=== PATIENT | female | born 1975 | race Caucasian/White ===

== ENCOUNTER 2016-10-20 01:34 | Inpatient (IN) | payer BC ==
[2016-10-20] VITALS (21 sets, daily range): BP systolic 106–144; BP diastolic 53–77
[~2016-10-20] VITALS: Ht 162.6 cm; Wt 101.0 kg
[~2016-10-20 01:34] MED LIST: SERTRALINE HCL100 MG PO
[2016-10-20 02:28] LABS: EOSINOPHIL (%) 0.4 % (0-5); IMMATURE GRANULOCYTE (%) 0.6 % (0.0-0.7); IMMATURE GRANULOCYTE COUNT 0.6 K/uL; LYMPHOCYTE COUNT 1.8 K/uL (1.0-2.8); MONOCYTE (%) 6.1 % (3-12); MONOCYTE COUNT 0.6 K/uL (0-0.8); NEUTROPHIL (%) 74.7 % (45-76); NEUTROPHIL COUNT 7.5 K/uL (1.8-6.4)
[2016-10-20 02:39] LABS: MCH 28.6 PG (29.0-34.0); MCHC 33.5 G/DL (30.0-36.0); MCV 85.5 FL (83-99); RED BLOOD COUNT 4.33 M/uL (3.80-5.20); WHITE BLOOD COUNT 10.1 K/uL (4.1-10.2)
[2016-10-20 02:59] LABS: ADD MIUA? YES; BILIRUBIN NEGATIVE; BLOOD NEGATIVE; COLOR YELLOW ((YELLOW)); GLUCOSE (STRIP) NEGATIVE; KETONES NEGATIVE; LEUKOCYTES SMALL; NITRITE NEGATIVE; PH, URINE 5.5 (5-8); PROTEIN (STRIP) NEGATIVE; SPECIFIC GRAVITY 1.019 (1.000-1.030); UROBILINOGEN 0.2 MG/DL (0.2-1.0)
[2016-10-20 03:02] LABS: MEAN PLAT.VOLUME 13.2 uM^3 (9.5-12.4); PLAT.SUFFICIENCY ADEQUATE; PLATELET COUNT 155 K/uL (156-360); USER ID WCD
[2016-10-20 03:33] LABS: EPITHELIAL CELLS RARE; MUCUS NONE SEEN; RED BLOOD CELLS NONE SEEN /HPF (0-5)
[2016-10-20 03:34] LABS: AMORPHOUS URATES CRYSTALS 1+; BACTERIA 2+; CASTS NONE SEEN /LPF; CRYSTALS PRESENT; UCUL ADDED? YES
[2016-10-21 02:58] VITALS: BP 109/59
[2016-10-21 07:59] VITALS: BP 101/57
[2016-10-21 08:05] LABS: EOSINOPHIL (%) 0.2 % (0-5); HEMATOCRIT 27.5 % (36.0-46.0); IMMATURE GRANULOCYTE (%) 0.5 % (0.0-0.7); IMMATURE GRANULOCYTE COUNT 0.1 K/uL; LYMPHOCYTE COUNT 1.6 K/uL (1.0-2.8); MCH 28.8 PG (29.0-34.0); MCHC 32.4 G/DL (30.0-36.0); MONOCYTE (%) 8.2 % (3-12); MONOCYTE COUNT 0.8 K/uL (0-0.8); NEUTROPHIL (%) 73.6 % (45-76); NEUTROPHIL COUNT 6.9 K/uL (1.8-6.4); NRBC (%) 0.2 /100 WBC (0-0); RBC DIS.WIDTH-CV 14.5 % (11.8-14.6); RBC DIS.WIDTH-SD 47.2 % (39-53); WHITE BLOOD COUNT 9.4 K/uL (4.1-10.2)
[2016-10-21 08:18] LABS: MEAN PLAT.VOLUME 13.5 uM^3 (9.5-12.4); PLAT.SUFFICIENCY DECREASED; PLATELET COUNT 125 K/uL (156-360); USER ID CCL
[2016-10-21 08:26] LABS: RED BLOOD COUNT 3.09 M/uL (3.80-5.20)
[2016-10-21 11:28] VITALS: BP 131/73
[2016-10-21 15:25] VITALS: BP 112/59
[2016-10-21 19:18] VITALS: BP 101/53
[2016-10-22 03:01] VITALS: BP 109/57
[2016-10-22 07:06] VITALS: BP 124/71
[2016-10-22 14:10] VITALS: BP 117/82
[2016-10-22 23:39] VITALS: BP 104/50
[2016-10-23] MEDS ORDERED: IBUPROFEN800 MG PO (09:51)
[2016-10-23] MEDS ORDERED: ENDOCET 5-3251 EACH PO (09:51)
[2016-10-23] MEDS ORDERED: CHROMAGEN,1 CAPSULE PO (09:51)
== END 2016-10-23 13:55 | disposition home or self-care (01) | DRG 765 ==
LOC: LDRP-OP 01:34 → 2WEST 01:35 → LDRP-OP 12-02 14:33
PROVIDERS: Advanced Practice Midwife; Obstetrics & Gynecology
PROC: 10D00Z1 Extraction of Products of Conception, Low, Open Approach (ICD-10-PCS; principal; 2016-10-20)
DX: O40.3XX0 Polyhydramnios, third trimester, not applicable or unspecified (principal); D62 Acute posthemorrhagic anemia; O09.523 Supervision of elderly multigravida, third trimester; O36.63X0 Maternal care for excessive fetal growth, third trimester, not applicable or unspecified; O24.429 Gestational diabetes mellitus in childbirth, unspecified control; O99.344 Other mental disorders complicating childbirth; O99.214 Obesity complicating childbirth; E66.9 Obesity, unspecified; F41.9 Anxiety disorder, unspecified; Z68.30 Body mass index [BMI] 30.0-30.9, adult; O99.02 Anemia complicating childbirth; Z3A.38 38 weeks gestation of pregnancy; Z37.0 Single live birth
CPT/HCPCS: 81003; 82948; 85025; 86850; 86900; 86901; 87086; C1755; J0690; J1100; J2175; J2274; J2405; J3010; J7120

== ENCOUNTER 2017-06-02 05:34 | Inpatient (IN) | payer BC ==
[~2017-06-02] VITALS: Ht 162.6 cm; Wt 97.4 kg
[~2017-06-02 05:34] MED LIST changes: +CHROMAGEN,1 CAPSULE PO; +ENDOCET 5-3251 EACH PO; +IBUPROFEN800 MG PO; -SERTRALINE HCL100 MG PO
[2017-06-02 06:11] LABS: HEMATOCRIT 39.3 % (36.0-46.0); MCHC 32.1 G/DL (30.0-36.0); MCV 87.3 FL (83-99); MEAN PLAT.VOLUME 11.4 uM^3 (9.5-12.4); PLATELET COUNT 233 K/uL (156-360); RBC DIS.WIDTH-CV 13.4 % (11.8-14.6); RBC DIS.WIDTH-SD 43.4 % (39-53); WHITE BLOOD COUNT 8.5 K/uL (4.1-10.2)
[2017-06-02 06:29] LABS: CHLORIDE 107 mEq/L (99-109); POTASSIUM 4.1 mEq/L (3.7-5.4); SODIUM 139 mEq/L (136-147)
[2017-06-02 06:31] LABS: GLUCOSE 103 mg/dL (70-99)
[2017-06-02 06:32] LABS: ANION GAP 9 MEQ/L (2-14)
[2017-06-02 06:33] LABS: TOTAL BILIRUBIN 0.5 mg/dL (0.0-1.0)
[2017-06-02 06:34] LABS: ALKALINE PHOSPHATASE 86 IU/L (3-129)
[2017-06-02 06:35] LABS: GFR ESTIMATE (CALCULATED) > 59 mL/min/
[2017-06-02 06:36] LABS: UREA NITROGEN (BUN) 12 mg/dL (9-23)
[2017-06-02 06:44] LABS: QUANTITATIVE HCG < 4.0 MIU/ML
[2017-06-02 09:44] LABS: ADD MIUA? NO; BILIRUBIN NEGATIVE; BLOOD NEGATIVE; COLOR STRAW ((YELLOW)); GLUCOSE (STRIP) NEGATIVE; KETONES NEGATIVE; LEUKOCYTES NEGATIVE; NITRITE NEGATIVE; PROTEIN (STRIP) NEGATIVE; UCUL ADDED? NO; UROBILINOGEN 0.2 MG/DL (0.2-1.0)
[2017-06-02 10:36] LABS: SPECIFIC GRAVITY 1.052 (1.000-1.030)
[2017-06-02] MEDS ORDERED: SERTRALINE HCL100 MG PO (11:14)
[2017-06-02 13:11] VITALS: BP 123/61
[2017-06-02 16:44] VITALS: BP 125/68
[2017-06-02 20:04] VITALS: BP 116/62
[2017-06-03 00:04] VITALS: BP 115/58
[2017-06-03 04:05] VITALS: BP 97/54
[2017-06-03 06:39] LABS: EOSINOPHIL (%) 1.2 % (0-5); EOSINOPHIL COUNT 0.1 K/uL (0-0.3); HEMATOCRIT 39.3 % (36.0-46.0); IMMATURE GRANULOCYTE (%) 0.3 % (0.0-0.7); INSTRUMENT ABS NEUTROPHIL CT 4.6 K/uL; LYMPHOCYTE COUNT 1.3 K/uL (1.0-2.8); MCHC 32.6 G/DL (30.0-36.0); MCV 88.9 FL (83-99); MONOCYTE (%) 7.1 % (3-12); MONOCYTE COUNT 0.5 K/uL (0-0.8); NEUTROPHIL (%) 70.5 % (45-76); NEUTROPHIL COUNT 4.6 K/uL (1.8-6.4); PLATELET COUNT 234 K/uL (156-360); RBC DIS.WIDTH-CV 13.4 % (11.8-14.6); RBC DIS.WIDTH-SD 44.2 % (39-53); RED BLOOD COUNT 4.42 M/uL (3.80-5.20); WHITE BLOOD COUNT 6.5 K/uL (4.1-10.2)
[2017-06-03 07:03] LABS: ANION GAP 7 MEQ/L (2-14); CHLORIDE 109 MEQ/L (99-109); GFR ESTIMATE (CALCULATED) > 59 mL/min/; GLUCOSE 85 mg/dL (70-99); POTASSIUM 4.4 MEQ/L (3.7-5.4); SAMPLE HEMOLYSIS CHECK 0; SAMPLE ICTERIC CHECK 0; SAMPLE LIPEMIA CHECK 0; SODIUM 141 MEQ/L (136-147); UREA NITROGEN (BUN) 9 mg/dL (9-23)
[2017-06-03 07:40] VITALS: BP 97/52
[2017-06-03 11:47] VITALS: BP 118/70
[2017-06-03 14:48] LABS: POINT-OF-CARE METER ID UU14107333
[2017-06-03 15:31] LABS: POINT-OF-CARE METER ID UU14107333
[2017-06-03 17:58] VITALS: BP 126/67
[2017-06-03 20:09] VITALS: BP 95/50
[2017-06-04 00:02] VITALS: BP 103/49
[2017-06-04 03:46] VITALS: BP 102/59
[2017-06-04 07:13] LABS: HEMATOCRIT 39.2 % (36.0-46.0); MCH 27.9 PG (29.0-34.0); MCHC 31.6 G/DL (30.0-36.0); MCV 88.3 FL (83-99); PLATELET COUNT 248 K/uL (156-360); RBC DIS.WIDTH-CV 13.2 % (11.8-14.6); RBC DIS.WIDTH-SD 43.1 % (39-53); RED BLOOD COUNT 4.44 M/uL (3.80-5.20); WHITE BLOOD COUNT 7.2 K/uL (4.1-10.2)
[2017-06-04 07:43] LABS: ALKALINE PHOSPHATASE 74 IU/L (3-129); ANION GAP 9 MEQ/L (2-14); CHLORIDE 109 MEQ/L (99-109); GFR ESTIMATE (CALCULATED) > 59 mL/min/; GLUCOSE 87 mg/dL (70-99); POTASSIUM 4.3 MEQ/L (3.7-5.4); SAMPLE HEMOLYSIS CHECK 0; SAMPLE ICTERIC CHECK 0; SAMPLE LIPEMIA CHECK 0; SODIUM 139 MEQ/L (136-147); TOTAL BILIRUBIN 0.6 MG/DL (0.0-1.0); UREA NITROGEN (BUN) 8 mg/dL (9-23)
[2017-06-04 07:45] VITALS: BP 102/51
[2017-06-04 11:53] VITALS: BP 109/67
[2017-06-04 16:30] VITALS: BP 114/60
[2017-06-04 23:17] VITALS: BP 105/52
[2017-06-05 07:15] VITALS: BP 105/63
[2017-06-05 08:05] LABS: HEMATOCRIT 37.9 % (36.0-46.0); MCH 28.9 PG (29.0-34.0); MCHC 32.7 G/DL (30.0-36.0); MCV 88.3 FL (83-99); MEAN PLAT.VOLUME 11.4 uM^3 (9.5-12.4); PLATELET COUNT 218 K/uL (156-360); RBC DIS.WIDTH-CV 13.2 % (11.8-14.6); RBC DIS.WIDTH-SD 42.6 % (39-53); RED BLOOD COUNT 4.29 M/uL (3.80-5.20); WHITE BLOOD COUNT 6.4 K/uL (4.1-10.2)
[2017-06-05 15:40] VITALS: BP 108/61
[2017-06-05 23:59] VITALS: BP 93/53
[2017-06-06 07:23] VITALS: BP 114/64
[2017-06-06] MEDS ORDERED: NICOTINE PATCH1 EAC2 TD (10:15)
[2017-06-06] MEDS ORDERED: METRONIDAZOLE500 MG PO (10:15)
[2017-06-06] MEDS ORDERED: CIPROFLOXACIN500 M1 PO (10:15)
[2017-06-06] MEDS ORDERED: OXAYDO5 MG PO (10:19)
== END 2017-06-06 12:06 | disposition home or self-care (01) | DRG 395 ==
LOC: EME 05:34 → EDOF 11:10 → 2EAST 11:10 → CANRESERV 11:11 → ENRESERV 11:11 → EDOF 11:12 → ENRESERV 11:15 → 2EAST 12:30
PROVIDERS: Internal Medicine; Internal Medicine Gastroenterology
DX: D12.5 Benign neoplasm of sigmoid colon (principal); D12.3 Benign neoplasm of transverse colon; K63.5 Polyp of colon; K57.30 Diverticulosis of large intestine without perforation or abscess without bleeding; K64.8 Other hemorrhoids; F32.9 Major depressive disorder, single episode, unspecified; F17.210 Nicotine dependence, cigarettes, uncomplicated; Z86.32 Personal history of gestational diabetes; Z80.0 Family history of malignant neoplasm of digestive organs
CPT/HCPCS: 74176; 74177; 76856; 80048; 80053; 80069; 81003; 82378; 82948; 84702; 85025; 85027; 88305; 99281; 99285; J0744; J1650; J2270; J2405; J3010; J7030; S0030

== ENCOUNTER 2018-05-20 04:45 | Emergency (ER) | payer BC ==
[~2018-05-20] VITALS: Ht 162.6 cm; Wt 91.9 kg
[~2018-05-20 04:45] MED LIST changes: +CIPROFLOXACIN500 M1 PO; +METRONIDAZOLE500 MG PO; +NICOTINE PATCH1 EAC2 TD; +OXAYDO5 MG PO; +SERTRALINE HCL100 MG PO
[2018-05-20 05:25] LABS: ALBUMIN 4.4 g/dL (3.2-4.8)
[2018-05-20 05:26] LABS: CHLORIDE 106 mEq/L (99-109); POTASSIUM 3.9 mEq/L (3.7-5.4); SODIUM 137 mEq/L (136-147)
[2018-05-20 05:28] LABS: GLUCOSE 103 mg/dL (70-99); TOTAL PROTEIN 7.5 g/dL (6.4-8.3)
[2018-05-20 05:30] LABS: TOTAL BILIRUBIN 0.9 mg/dL (0.0-1.0)
[2018-05-20 05:31] LABS: ALKALINE PHOSPHATASE 83 IU/L (3-129)
[2018-05-20 05:32] LABS: CREATININE 0.8 mg/dL (0.6-1.3); GFR ESTIMATE (CALCULATED) > 59 mL/min/
[2018-05-20 05:33] LABS: AST (GOT) 11 IU/L (2-34); UREA NITROGEN (BUN) 17 mg/dL (9-23)
[2018-05-20 05:34] LABS: ALT (GPT) 12 IU/L (3-49)
[2018-05-20 05:35] LABS: LIPASE 10 U/L (1.0-51.0)
[2018-05-20 05:41] LABS: QUANTITATIVE HCG < 4.0 MIU/ML
[2018-05-20 05:42] LABS: HEMATOCRIT 43.4 % (36.0-46.0); HEMOGLOBIN 14.7 G/DL (11.9-15.5); MCH 29.5 PG (29.0-34.0); MCHC 33.9 G/DL (30.0-36.0); MCV 87.1 FL (83-99); PLATELET COUNT 233 K/uL (156-360); RBC DIS.WIDTH-CV 13.7 % (11.8-14.6); RBC DIS.WIDTH-SD 43.8 % (39-53); RED BLOOD COUNT 4.98 M/uL (3.80-5.20); WHITE BLOOD COUNT 8.4 K/uL (4.1-10.2)
[2018-05-20 06:28] LABS: APPEARANCE CLEAR ((CLEAR)); BILIRUBIN NEGATIVE; BLOOD SMALL; COLOR YELLOW ((YELLOW)); GLUCOSE (STRIP) NEGATIVE; KETONES 20; LEUKOCYTES NEGATIVE; NITRITE NEGATIVE; PROTEIN (STRIP) NEGATIVE; SPECIFIC GRAVITY 1.053 (1.000-1.030); UROBILINOGEN 0.2 MG/DL (0.2-1.0)
[2018-05-20 06:38] LABS: BACTERIA NONE SEEN /HPF; EPITHELIAL CELLS 2+ /HPF; MUCUS 2+ /LPF; UCUL ADDED? NO; WHITE BLOOD CELLS 0-5 /HPF (0-5)
[2018-05-20 06:47] VITALS: BP 109/48
== END 2018-05-20 06:48 | disposition home or self-care (01) ==
LOC: EME 04:45
PROVIDERS: Emergency Medicine
DX: K63.89 Other specified diseases of intestine (principal); F17.200 Nicotine dependence, unspecified, uncomplicated
CPT/HCPCS: 74177; 80053; 81003; 83690; 84702; 85027; 99281; 99284